=== PATIENT | male | born 1985 | race African-American/Black ===

== ENCOUNTER 2016-08-27 03:05 | Emergency (ER) | payer OTHER ==
[~2016-08-27] VITALS: Ht 185.4 cm; Wt 99.8 kg
[~2016-08-27 03:05] MED LIST: NOHOMEMEDICATIONS
[2016-08-27 03:42] LABS: AMP/METHAMP Negative (Negative); BARBITURATES Negative (Negative); BENZODIAZEPINES Negative (Negative); COCAINE Negative (Negative); METHADONE Negative (Negative); OPIATES Negative (Negative); PCP POSITIVE (Negative); THC Negative (Negative)
[2016-08-27 05:09] VITALS: BP 146/81
== END 2016-08-27 06:30 | disposition home or self-care (01) ==
LOC: ER 03:05
PROVIDERS: Emergency Medicine
DX: F16.22 Hallucinogen dependence with intoxication (principal); F17.210 Nicotine dependence, cigarettes, uncomplicated; F10.99 Alcohol use, unspecified with unspecified alcohol-induced disorder